=== PATIENT | male | born 1995 | race American Indian/Alaskan Native ===

== ENCOUNTER 2017-04-16 08:02 | Outpatient (CLI) | payer OTHER ==
--- NOTE | 2017-04-16 09:21 | XRay Report ---
RIGHT KNEE RADIOGRAPHS INDICATION: Right knee pain. COMPARISON: None similar at this institution. FINDINGS: Standing AP, oblique, straight lateral and sunrise views of the right knee demonstrate normal bony articulation. Distal femoral subtle lateral cortical smooth bulge/prominent contour incidentally noted with normal trabeculae and overlying cortex, presumably a tug lesion. No abnormal density projects within the joint space. No suprapatellar effusion. CONCLUSION: No definite acute right knee radiographic abnormality, as detailed above. Please correlate. Thank you for the opportunity to participate in this patient's care.
== END 2017-04-16 08:03 | disposition home or self-care (01) ==
LOC: XRAY 08:02 → SPVIMAG 08:02
PROVIDERS: ATTEND Orthopaedic Surgery
DX: M25.561 Pain in right knee (principal)